=== PATIENT | female | born 1950 | race Two or more races ===

== ENCOUNTER 2018-04-05 14:21 | Outpatient (CLI) | payer OTHER ==
[~2018-04-05 14:21] MED LIST: BABY ASPIRIN81 MG; DICLOFENAC SODI50 MG PO; METOPROLOL SUCC25 MG; OSTERA TABLET1 EACH
== END 2018-04-05 14:26 | disposition home or self-care (01) ==
LOC: RAD 14:21
DX: M79.674 Pain in right toe(s) (principal)

== ENCOUNTER 2019-01-04 14:10 | Emergency (ER) | payer OTHER ==
[~2019-01-04] VITALS: Ht 157.5 cm; Wt 63.5 kg
[2019-01-04] MEDS ORDERED: LIPITOR20 MG (14:51)
[2019-01-04] MEDS ORDERED: MUCINEX D ER 11 EACH PO (15:40)
[2019-01-04] MEDS ORDERED: TOBRADEX EYE DR10 ML OP (15:40)
== END 2019-01-04 15:57 | disposition home or self-care (01) ==
LOC: ER 14:10
DX: H10.11 Acute atopic conjunctivitis, right eye (principal)

== ENCOUNTER 2020-09-16 10:48 | Emergency (ER) | payer OTHER ==
[~2020-09-16] VITALS: Ht 157.5 cm; Wt 61.7 kg
[~2020-09-16 10:48] MED LIST changes: +LIPITOR20 MG; +MUCINEX D ER 11 EACH PO; +TOBRADEX EYE DR10 ML OP
[2020-09-16] MEDS ORDERED: NORVASC5 MG (11:10)
[2020-09-16] MEDS ORDERED: DICLOFENAC POTA50 MG PO (14:29)
== END 2020-09-16 14:31 | disposition home or self-care (01) ==
LOC: ER 10:48
DX: S93.491A Sprain of other ligament of right ankle, initial encounter (principal); S80.02XA Contusion of left knee, initial encounter; W01.198A Fall on same level from slipping, tripping and stumbling with subsequent striking against other object, initial encounter; Y93.01 Activity, walking, marching and hiking; Y92.018 Other place in single-family (private) house as the place of occurrence of the external cause; Y99.8 Other external cause status

== ENCOUNTER 2020-11-20 06:12 | Outpatient (CLI) | payer OTHER ==
[~2020-11-20 06:12] MED LIST changes: +DICLOFENAC POTA50 MG PO; +NORVASC5 MG
== END 2020-11-20 18:50 | disposition home or self-care (01) ==
LOC: LAB 06:12
PROVIDERS: ATTEND Orthopaedic Surgery
DX: E56.1 Deficiency of vitamin K (principal); E55.9 Vitamin D deficiency, unspecified; M85.9 Disorder of bone density and structure, unspecified; N39.0 Urinary tract infection, site not specified; D64.9 Anemia, unspecified; E88.9 Metabolic disorder, unspecified; E78.00 Pure hypercholesterolemia, unspecified; E03.9 Hypothyroidism, unspecified

== ENCOUNTER → 2022-08-24 | Outpatient (CLI) | payer OTHER | END | disposition home or self-care (01) | LOC: TOM 08:36 | PROVIDERS: ATTEND Internal Medicine | DX: R10.13 Epigastric pain (principal); K63.4 Enteroptosis | CPT/HCPCS: 74177; Q9965 ==

== ENCOUNTER 2023-08-02 10:44 | Inpatient (IN) | payer OTHER ==
[~2023-08-02] VITALS: Ht 152.4 cm; Wt 54.4 kg
[2023-08-02] MEDS ORDERED: 0.9 % SODIUM CHLORIDE 1,000 ML IV STA (11:38)
[2023-08-02 12:40] LABS: HEMOGLOBIN 14.5 g/dL (12.0-15.00); MEAN CORPUSCULAR HEMOGLOBIN 27.3 pg (27.00-32.0); MEAN CORPUSCULAR HGB CONC 34.5 g/dl (32.0-36.0); PLATELET COUNT 291 K/uL (150-450); RED BLOOD COUNT 5.31 M/uL (4.00-6.00); RED CELL DISTRIBUTION WIDTH 13.3 % (11.5-14.5)
[2023-08-02 12:55] LABS: ALBUMIN 3.8 gm/dL (3.4-5.0); BILIRUBIN TOTAL 0.71 mg/dL (0.3-1.2); BILIRUBIN,CONJUGATED 0.17 mg/dL (0.0-0.2); BILIRUBIN,UNCONJUGATED 0.54 mg/dL (0.0-0.6); CALCIUM 9.6 mg/dL (8.5-10.1); CREATININE SERUM 0.6 mg/dL (0.55-1.02); GFR 97.72; POTASSIUM 3.48 mEq/L (3.5-5.1); TOTAL PROTEIN 7.4 gm/dL (6.4-8.2)
[2023-08-02] MEDS ORDERED: METRONIDAZOLE/SODIUM CHLORIDE 500 MG/100 ML PIGGYBACK IV STA (16:23)
[2023-08-02] MEDS ORDERED: CIPROFLOXACIN IN 5 % DEXTROSE 400 MG/200 ML PIGGYBAG IV STA (16:31)
[2023-08-02] MEDS ORDERED: HYOSCYAMINE SULFATE 0.125 MG TAB.SUBL SL STA (17:05)
[2023-08-02] MEDS ORDERED: FAMOTIDINE/PF 20 MG/2 ML VIAL IV SCH (17:07)
[2023-08-02] MEDS ORDERED: SUCRALFATE 1 G TABLET PO SCH (17:10)
[2023-08-02 17:14] LABS: PH,URINE 7.5 (5.0-8.0); URINE APPEARANCE Clear; URINE BILIRRUBIN Negative (NEGATIVE); URINE BLOOD Negative; URINE COLOR Yellow; URINE GLUCOSE Negative (NEGATIVE); URINE LEUKOCYTE Large; URINE NITRATE Negative; URINE PROTEIN Negative (NEGATIVE); URINE UROBILINOGEN 0.2 E.U./dl
[2023-08-02 17:15] LABS: URINE BACTERIA 267.1 uL (0.0-1933); URINE EPITHELIAL CELLS 7.4 uL (0.0-38.8); URINE RBC 7.3 uL (0.0-20.8); URINE WBC 130.4 uL (0.0-23.2)
[2023-08-02] MEDS ORDERED: ONDANSETRON HCL 4 MG in 0.9 % SODIUM CHLORIDE 50 ML IV PRN (17:15)
[2023-08-02] MEDS ORDERED: HYOSCYAMINE SULFATE 0.125 MG TAB.SUBL SL SCH (17:15)
[2023-08-02] MEDS ORDERED: MULTIVIT INFUSN,ADULT 4,VIT K 10 ML VIAL IV SCH (17:57)
[2023-08-02] MEDS ORDERED: LACTOBACILLUS ACIDOPHILUS 1 CAP CAP PO SCH (17:58)
[2023-08-02] MEDS ORDERED: DEXTROSE 5 % AND 0.9 % NACL 1,000 ML IV SCH (18:00)
[2023-08-02] MEDS ORDERED: CIPROFLOXACIN IN 5 % DEXTROSE 200 ML IV SCH (18:05)
[2023-08-02] MEDS ORDERED: TEMAZEPAM 15 MG CAPSULE PO PRN (19:15)
[2023-08-02 19:32] LABS: FECAL LEUKOCYTES NEGATIVE (NEGATIVE); ob NEGATIVE (NEGATIVE)
[2023-08-03] MEDS ORDERED: HYOSCYAMINE SULFATE 0.125 MG TAB.SUBL SL SCH (01:00)
[2023-08-03] MEDS ORDERED: SUCRALFATE 1 G TABLET PO SCH (09:00)
[2023-08-03] MEDS ORDERED: METOPROLOL SUCCINATE 50 MG TAB.SR.24H PO SCH (09:00)
[2023-08-03] MEDS ORDERED: AMLODIPINE BESYLATE 5 MG TABLET PO SCH (09:00)
[2023-08-03 15:08] LABS: CREATININE SERUM 0.63 mg/dL (0.55-1.02); GFR 92.37
[2023-08-03 16:06] LABS: POTASSIUM 2.99 mEq/L (3.5-5.1)
[2023-08-03] MEDS ORDERED: POTASSIUM CHLORIDE IN WATER 100 ML IV ONE (16:45)
[2023-08-03] MEDS ORDERED: RAZADYNE ER16 MG (18:01)
[2023-08-03] MEDS ORDERED: ZOLPIDEM TART6.25 MG (18:01)
[2023-08-03] MEDS ORDERED: MEMANTINE HCL10 MG (18:01)
[2023-08-03] MEDS ORDERED: BUPROPION HCL100 MG (18:02)
[2023-08-03] MEDS ORDERED: SERTRALINE HCL25 MG (18:02)
[2023-08-03] MEDS ORDERED: CLONAZEPAM0.5 MG (18:03)
[2023-08-03] MEDS ORDERED: 0.9 % SODIUM CHLORIDE 1,000 ML IV SCH (18:45)
[2023-08-03] MEDS ORDERED: CLOTRIMAZOLE 21GM VAG. CREAM.APPL VAG SCH (21:00)
[2023-08-03] MEDS ORDERED: POTASSIUM CHLORIDE IN WATER 40 MEQ/100 ML PIGGYBAG IV SCH (21:00)
[2023-08-04 05:55] LABS: CALCIUM 9.1 mg/dL (8.5-10.1); CREATININE SERUM 0.51 mg/dL (0.55-1.02); GFR 117.88; POTASSIUM 3.51 mEq/L (3.5-5.1)
[2023-08-04] MEDS ORDERED: TEMAZEPAM 15 MG CAPSULE PO PRN (18:26)
[2023-08-04] MEDS ORDERED: MEGESTROL ACETATE 40 MG TABLET PO SCH (18:30)
[2023-08-05] MEDS ORDERED: FAMOtidine 20 MG TABLET PO SCH (09:00)
[2023-08-05] MEDS ORDERED: LORazepam 0.5 MG TABLET PO SCH (09:00)
[2023-08-05] MEDS ORDERED: ATIVAN0.5 M1 PO (10:11)
[2023-08-05] MEDS ORDERED: CIPRO500 MG PO (10:11)
[2023-08-05] MEDS ORDERED: INFUVITE ADULT10 ML IV (10:11)
[2023-08-05] MEDS ORDERED: RESTORIL15 MG PO (10:11)
[2023-08-05] MEDS ORDERED: FAMOTIDINE20 MG/2 M1 IV (10:11)
[2023-08-05] MEDS ORDERED: PRE PROTEIN1 EACH PO (10:13)
== END 2023-08-05 10:38 | disposition home or self-care (01) | DRG 392 ==
LOC: ER 10:44 → SURH 18:54
PROVIDERS: General Practice; ADMIT Internal Medicine Cardiovascular Disease; ATTEND Internal Medicine Cardiovascular Disease
PROC: BW21YZZ Computerized Tomography (CT Scan) of Abdomen and Pelvis using Other Contrast (ICD-10-PCS; principal; 2023-08-02)
DX: K52.9 Noninfective gastroenteritis and colitis, unspecified (principal); N39.0 Urinary tract infection, site not specified; I67.89 Other cerebrovascular disease; F01.518 Vascular dementia, unspecified severity, with other behavioral disturbance; E86.0 Dehydration; R41.0 Disorientation, unspecified; B96.20 Unspecified Escherichia coli [E. coli] as the cause of diseases classified elsewhere; F51.05 Insomnia due to other mental disorder; T44.1X1A Poisoning by other parasympathomimetics [cholinergics], accidental (unintentional), initial encounter; R13.10 Dysphagia, unspecified; G30.9 Alzheimer's disease, unspecified; F02.80 Dementia in other diseases classified elsewhere, unspecified severity, without behavioral disturbance, psychotic disturbance, mood disturbance, and anxiety; I10 Essential (primary) hypertension